=== PATIENT | female | born 1960 | race Caucasian/White ===

== ENCOUNTER 2018-09-02 14:54 | Inpatient (IN) | payer BC ==
[~2018-09-02] VITALS: Ht 157.5 cm; Wt 60.1 kg
[2018-09-02] MEDS ORDERED: ONDANSETRON 4MG/2ML VIAL (J2405) IV ONE (15:15)
[2018-09-02] MEDS ORDERED: PANTOPRAZOLE 40MG INJ (PROTONIX) (C9113) IV ONE (15:15)
[2018-09-02] MEDS ORDERED: NS 1,000 ML IV ONE ×2 (15:15→16:15)
[2018-09-02 15:21] LABS: BASO # 0.1 10^3/uL (0.0-0.2); BASO % 0.7 % (0.0-1.0); EOS # 0.2 10^3/uL (0.0-0.50); EOS % 1.5 % (0.0-3.0); HEMOGLOBIN 11.1 g/dl (12.0-15.5); LYMPH # 3.1 10^3/uL (1.5-4.5); LYMPH % 25.6 % (24.0-44.0); MEAN CORPUSCULAR HEMOGLOBIN 29.4 pg (27.0-33.0); MEAN CORPUSCULAR HGB CONC 31.7 g/dl (32.0-36.5); MEAN CORPUSCULAR VOLUME 92.6 fl (80.0-96.0); MONO % 8.1 % (0.0-5.0); NEUTROPHILS # 7.7 10^3/uL (1.8-7.7); NEUTROPHILS % 63.7 % (36.0-66.0); PLATELET COUNT, AUTOMATED 364 10^3/uL (150-450); RED BLOOD COUNT 3.78 10^6/uL (4.00-5.40)
[2018-09-02 15:31] LABS: INR 1.05; PROTHROMBIN TIME 13.8 SECONDS (12.1-14.4)
[2018-09-02 15:32] LABS: PARTIAL THROMBOPLASTIN TIME 22.6 SECONDS (25.4-37.6)
[2018-09-02 15:41] LABS: ALT/SGPT 17 U/L (12-78); BILIRUBIN,DIRECT 0.1 MG/DL (0.0-0.2); BILIRUBIN,TOTAL 0.5 MG/DL (0.2-1.0); BLOOD UREA NITROGEN 38 MG/DL (7-18); CALCIUM LEVEL 9.4 MG/DL (8.5-10.1); CARBON DIOXIDE LEVEL 26 MEQ/L (21-32); CHLORIDE LEVEL 109 MEQ/L (98-107); CK-MB VALUE MASS < 1.0 NG/ML (<3.6); CPK CREATINE PHOSPHOKINASE 68 U/L (26-192); CREATININE FOR GFR 0.87 MG/DL (0.55-1.30); GLOMERULAR FILTRATION RATE > 60.0 (>51); GLUCOSE, FASTING 162 MG/DL (70-100); LIPASE 188 U/L (73-393); MB/CK RELATIVE INDEX 1.47 (< OR =4); POTASSIUM SERUM 3.8 MEQ/L (3.5-5.1); SODIUM LEVEL 143 MEQ/L (136-145); TOTAL PROTEIN 6.5 GM/DL (6.4-8.2); TROPONIN I < 0.02 NG/ML (< 0.10)
[2018-09-02] MEDS ORDERED: LORA0.5T11 PO (15:50)
[2018-09-02] MEDS ORDERED: LAMI300T PO (15:52)
[2018-09-02] MEDS ORDERED: POTA10808 PO (15:56)
[2018-09-02] MEDS ORDERED: GABA-1171 PO (15:56)
[2018-09-02] MEDS ORDERED: [UNRECOGNIZED DRUG - CODE] PO (15:56)
[2018-09-02] MEDS ORDERED: FLUO40CA PO (15:56)
[2018-09-02] MEDS ORDERED: VASC1CAP2 PO (15:56)
[2018-09-02] MEDS ORDERED: ISOVUE-370 76% 100ML VIAL (Q9967) As Ordered ONE (16:46)
--- NOTE | 2018-09-02 17:16 | REPVR ---
EXAM: CT Abdomen and Pelvis With Contrast EXAM DATE/TIME: 09/02/2018 4:57 PM CLINICAL HISTORY: 58 years old, female; Signs and symptoms; Vomiting TECHNIQUE: Axial computed tomography images of the abdomen and pelvis with intravenous contrast. All CT scans at this facility use at least one of these dose optimization techniques: automated exposure control; mA and/or kV adjustment per patient size (includes targeted exams where dose is matched to clinical indication); or iterative reconstruction. Coronal and sagittal reformatted images were created and reviewed. CONTRAST: 100 ml of ISOVUE 370 administered intravenously. COMPARISON: CT ABD PELVIS W/O CONTRAST 09/08/2014 9:09 AM FINDINGS: Lower thorax: Ground glass opacity left lung base just above the left hemidiaphragm likely represents atelectasis.. ABDOMEN: Liver: Normal. No mass. Gallbladder and bile ducts: Normal. No calcified stones. No ductal dilation. Pancreas: Normal. No ductal dilation. Spleen: Normal. No splenomegaly. Adrenals: Normal. No mass. Kidneys and ureters: Punctate nonobstructive calculi both kidneys. Stomach and bowel: Mild diverticulosis is present in the distal colon. No diverticulitis. There is increased feces throughout the colon consistent with constipation. Appendix: No evidence of appendicitis. PELVIS: Bladder: Unremarkable as visualized. Reproductive: There has been a hysterectomy. ABDOMEN and PELVIS: Intraperitoneal space: Normal. No free air. No significant fluid collection. Bones/joints: The spine demonstrates mild degenerative changes. Moderate central spinal stenosis at L3-4 and L4-5. Soft tissues: Unremarkable. Vasculature: The aorta demonstrates mild atherosclerotic calcification. Lymph nodes: Normal. No enlarged lymph nodes. IMPRESSION: 1. There has been a hysterectomy. 2. Mild diverticulosis is present in the distal colon. No diverticulitis. 3. There is increased feces throughout the colon consistent with constipation. Electronically signed by: Aldo Pierson On 09/02/2018 17:16:32 PM
[2018-09-02 19:37] LABS: CPK CREATINE PHOSPHOKINASE 54 U/L (26-192); MB/CK RELATIVE INDEX 2.04 (< OR =4); TROPONIN I < 0.02 NG/ML (< 0.10)
--- NOTE | 2018-09-02 19:37 | ECGEPIP ---
Stationary ECG Study [facility] - ED Test Date: 2018-09-02 Pat Name: JUN CANTRELL Department: Room: - Gender: F Buccaro: ABDI : 1960 Requested By: ANABELLA El Order Number: [id number] Reading MD: Karely Roper Measurements Intervals [place] Rate: 89 P: 30 ME: 148 QRS: -19 QRSD: 91 T: 85 QT: 396 QTc: 483 Interpretive Statements SINUS RHYTHM ST DEVIATION AND MODERATE T-WAVE ABNORMALITY, CONSIDER ANTEROLATERAL ISCHEMIA ST DEVIATION AND MODERATE T-WAVE ABNORMALITY, CONSIDER INFERIOR ISCHEMIA PROLONGED QTC CLINICAL CORRELATION ADVISED Electronically Signed On 09-02-2018 19:37:05 EST by Karely Roper
[2018-09-02] MEDS ORDERED: FLUTISP NARES (19:41)
[2018-09-02] MEDS ORDERED: METF500T13 PO (19:41)
[2018-09-02] MEDS ORDERED: VITA1CAP25 PO (19:41)
[2018-09-02] MEDS ORDERED: CETI10TA PO (19:41)
--- NOTE | 2018-09-02 19:48 | ECGEPIP ---
Stationary ECG Study [facility] - ED Test Date: 2018-09-02 Pat Name: JUN CANTRELL Department: Room: - Gender: F Account Services Representative: paulo : 1960 Requested By: ANABELLA El Order Number: [id number] Reading MD: Karely Roper Measurements Intervals [place] Rate: 76 P: 24 W[place]: 156 QRS: -18 QRSD: 88 T: -73 QT: 425 QTc: 479 Interpretive Statements SINUS RHYTHM ST DEVIATION AND MODERATE T-WAVE ABNORMALITY, CONSIDER ANTEROLATERAL AND INFERIOR ISCHEMIA CW 09/02/18 RATE DECREASED [facility] Electronically Signed On 09-02-2018 19:48:48 EST by Karely Roper
[2018-09-02] MEDS ORDERED: BISACODYL 10 MG SUPP PR PRN (20:15)
[2018-09-02] MEDS ORDERED: LORazepam 0.5 MG TAB PO PRN (20:45)
--- NOTE | 2018-09-02 20:56 | HPEPDOC ---
[facility] Medical History & Physical Date of Admission Sep 02, 2018 Other Provider Admitting/dictating: Tika Morfin M.D. Attending Physician: VIELKA ROMAN MD History and Physical CHIEF COMPLAINT: "coffee ground" vomit x1 day HISTORY OF PRESENT ILLNESS: Patient is a 58-year-old female with history of GERD and depression. Patient comes from [place] to visit her parents here in [place] currently father diagnosed with Alzheimer's reside here in the [facility] home. According to her, she has been in her usual state of health until while at the [facility] visiting her father, she felt a little nauseous and "hot". She also reports some dizziness for which EMS was activated and while she was in the ambulance, she started having bouts of coffee ground vomit. She says over 10 times. However, she denies any associated abdominal pains. No abdominal discomfort. She denies any fever or chills. No palpitations, no chest pains. She never felt short of breath. No history of cough. He also denies any change in her bowel or urinary habits. She was evaluated in the emergency room and given pantoprazole and anti-emetics. Her abdominopelvic CT scan was significant for diverticulosis without diverticulitis and possible increased fecal matter consistent with constipation. GI informed, and patient likely to be scoped in the morning tomorrow. PAST MEDICAL HISTORY: Per HPI PAST SURGICAL HISTORY: 1. Hysterectomy without oophorectomy. 2. 2 sections in the past. 3. Neck surgery. 4. Exploratory laparotomy for endometriosis. SOCIAL HISTORY: Indulges occasionally in alcohol. Last use was last week. No cigarette smoking. No illicit drug use. She lives with her in [place]. She has parents living in [facility] and father in [facility] at the moment with Alzheimer. FAMILY HISTORY: Father: Alive, diagnosed with Alzheimer's Mother: Alive and well Children: 2 children, a male and female alive and well No histories of cancer in the family. ALLERGIES: Please see below. REVIEW OF SYSTEMS: She refers bouts of coffee ground vomit. She says over 10 times. However, she denies any associated abdominal pains. No abdominal discomfort. She denies any fever or chills. No palpitations, no chest pains. She never felt short of breath. No history of cough. He also denies any change in her bowel or urinary habits. Other systems reviewed, negative. 12 point review of system was done. HOME MEDICATIONS: Please see below. PHYSICAL EXAMINATION: VITAL SIGNS: Temperature 98, pulse 83, respiratory rate 18, blood pressure 126/62, pulse oximetry 99% on room air. GENERAL APPEARANCE: Middle aged woman, lying calmly in bed, not in any apparent distress. She is not pale, anicteric and afebrile HEENT: Atraumatic. Neck: Supple. LUNGS: Clear to auscultation bilaterally. CARDIOVASCULAR: S1 and 2 heard, no murmurs, rubs or gallops. ABDOMEN: Obese, soft, not tender, not distended. Bowel sounds normoactive. MUSCULOSKELETAL: Apparently within normal limits. EXTREMITIES: No pedal edema, 2+ bilateral pedal pulses noted. NEUROLOGICAL: Awake, alert, oriented 3. PSYCHIATRIC: Normal affect LABORATORY DATA: See below. IMAGING: CT abdomen and pelvis: There has been hysterectomy. Mild diverticulosis in distal: Increased feces consistent with constipation. MICROBIOLOGY: Please see below. ASSESSMENT: 58-year-old woman with GERD and depression. Comes in with coffee- ground vomiting, no abdominal pains. Physical exam unremarkable. CT consistent with diverticulosis and constipation. DIAGNOSES: 1. Upper GI bleed. 2. Constipation . PLAN: 1. I will admit patient to the PCU under care of Dr. Roman. 2. Hematocrit/hemoglobin every 6 hours, IV normal saline to run at 100 mils per hour, nothing by mouth, GI consult placed. Dr. Esteban was seen in the morning. Likely patient will be scoped, IV pantoprazole 40 mg every 12, follow CBC in the a.m. 3. Dulcolax per rectum when necessary constipation. 4. DVT prophylaxis, TEDs. 5. Post GI procedure tomorrow. Please patient may resume all by mouth medications. 7. Further management will be per patient's clinical course. Vital Signs Vital Signs Date Time Temp Pulse Resp B/P (MAP) Pulse Ox O2 Delivery O2 Flow Rate FiO2 09/02/18 18:09 83 18 126/62 (83) 99 09/02/18 15:39 Room Air 09/02/18 15:12 96.5 Laboratory Data Labs 24H Laboratory Tests 2 09/02/18 15:04: Immature Granulocyte % (Auto) 0.4, White Blood Count 12.0H, Red Blood Count 3.78L, Hemoglobin 11.1L, Hematocrit 35.0L, Mean Corpuscular Volume 92.6, Mean Corpuscular Hemoglobin 29.4, Mean Corpuscular Hemoglobin Concent 31.7L, Red Cell Distribution Width 13.2, Platelet Count 364, Neutrophils (%) (Auto) 63.7, Lymphocytes (%) (Auto) 25.6, Monocytes (%) (Auto) 8.1H, Eosinophils (%) (Auto) 1.5, Basophils (%) (Auto) 0.7, Neutrophils # (Auto) 7.7, Lymphocytes # (Auto) 3.1, Monocytes # (Auto) 1.0H, Eosinophils # (Auto) 0.2, Basophils # (Auto) 0.1, Nucleated Red Blood Cells % (auto) 0.0, Prothrombin Time 13.8, Prothromb Time International Ratio 1.05, Activated Partial Thromboplast Time 22.6L, Anion Gap 8, Glomerular Filtration Rate > 60.0, Lactic Acid Level 4.0*H, Calcium Level 9.4, Aspartate Amino Transf (AST/SGOT) 9, Alanine Aminotransferase (ALT/SGPT) 17, Alkaline Phosphatase 66, Total Bilirubin 0.5, Direct Bilirubin 0.1, Total Creatine Kinase 68, Creatine Kinase MB < 1.0, Creatine Kinase MB Relative Index 1.47, Troponin I < 0.02, Total Protein 6.5, Albumin 4.0, Albumin/Globulin Ratio 1.60, Lipase 188 09/02/18 19:00: Total Creatine Kinase 54, Creatine Kinase MB 1.0, Creatine Kinase MB Relative Index 2.04, Troponin I < 0.02, Lactic Acid Followup at 4 Hours 1.3 CBC/BMP Laboratory Tests 09/02/18 15:04 Red Blood Count 3.78 L, Mean Corpuscular Volume 92.6, Mean Corpuscular Hemoglobin 29.4, Mean Corpuscular Hemoglobin Concent 31.7 L, Red Cell Distribution Width 13.2, Neutrophils (%) (Auto) 63.7, Lymphocytes (%) (Auto) 25.6, Monocytes (%) (Auto) 8.1 H, Eosinophils (%) (Auto) 1.5, Basophils (%) (Auto) 0.7, Neutrophils # (Auto) 7.7, Lymphocytes # (Auto) 3.1, Monocytes # (Auto) 1.0 H, Eosinophils # (Auto) 0.2, Basophils # (Auto) 0.1 Home Medications Scheduled (Lamictal Xr) 300 Mg Tab, 300 MG PO DAILY (Ranitidine Hydrochloride) 150 Mg Cap, 1 CAP PO BID Cetirizine HCl (Cetirizine HCl) 10 Mg Tab, 10 MG PO DAILY Cholecalciferol (Vitamin D3) 50,000 Unit Cap, 50,000 UNIT PO Q2WK TAKES ON FRIDAYS Epa Ethyl [place] (Vascepa) 1 Gm Cap, 1 GM PO QID Fluoxetine Hcl (Fluoxetine HCl) 40 Mg Cap, 80 MG PO DAILY Fluticasone Propionate (Fluticasone Propionate) 50 Mcg/Act Spr, 2 SPRAY NARES DAILY Gabapentin (Gabapentin) 100 Mg Cap, 100 MG PO QHS PRESCRIBED FOR 2 CAPSULES BID, PATIENT TAKES ONE CAPSULE DAILY AT BEDTIME Lorazepam (Lorazepam) 0.5 Mg Tab, 0.5 MG PO TID PATIENT TAKES 1 TABLET DAILY IN THE MORNING Metformin Hydrochloride (Metformin HCl) 500 Mg Tab, 500 MG PO DAILY TAKE WITH DINNER MEAL FOR 2 WEEKS, THEN INCREASE TO 2 TABLETS WITH DINNER MEAL. NEW RX, HAS NOT STARTED Potassium Citrate (Potassium Citrate 10MEQ (Urocit-K)) 1,080 Mg Tab, 10 MEQ PO BID Allergies Coded Allergies: Sodium Hypochlorite (Verified Allergy, Intermediate, [facility]OR[facility] - RASH, 09/02/18) TIKA MORFIN MD Sep 02, 2018 20:04
[2018-09-02] MEDS: PANTOPRAZOLE 40MG INJ (PROTONIX) (C9113) IV SCH (22:21)
[2018-09-02] MEDS: NS 1,000 ML IV SCH (22:21)
[2018-09-02 23:08] LABS: HEMATOCRIT 26.2 % (36.0-47.0)
[2018-09-02 23:14] LABS: HEMOGLOBIN 8.5 g/dl (12.0-15.5)
[2018-09-03 03:13] LABS: HEMATOCRIT 25.5 % (36.0-47.0); HEMOGLOBIN 8.4 g/dl (12.0-15.5)
[2018-09-03 07:01] LABS: BASO # 0.1 10^3/uL (0.0-0.2); BASO % 0.7 % (0.0-1.0); EOS # 0.2 10^3/uL (0.0-0.50); EOS % 3.1 % (0.0-3.0); HEMOGLOBIN 8.4 g/dl (12.0-15.5); LYMPH # 2.2 10^3/uL (1.5-4.5); LYMPH % 30.3 % (24.0-44.0); MEAN CORPUSCULAR HEMOGLOBIN 29.5 pg (27.0-33.0); MEAN CORPUSCULAR HGB CONC 32.3 g/dl (32.0-36.5); MEAN CORPUSCULAR VOLUME 91.2 fl (80.0-96.0); MONO # 0.6 10^3/uL (0.0-0.8); MONO % 8.7 % (0.0-5.0); NEUTROPHILS # 4.1 10^3/uL (1.8-7.7); NEUTROPHILS % 56.8 % (36.0-66.0); RED BLOOD COUNT 2.85 10^6/uL (4.00-5.40); WHITE BLOOD COUNT 7.1 10^3/uL (4.0-10.0)
[2018-09-03 07:12] LABS: PLATELET COUNT, AUTOMATED 264 10^3/uL (150-450)
[2018-09-03 07:27] LABS: BLOOD UREA NITROGEN 18 MG/DL (7-18); CALCIUM LEVEL 8.3 MG/DL (8.5-10.1); CARBON DIOXIDE LEVEL 24 MEQ/L (21-32); CHLORIDE LEVEL 114 MEQ/L (98-107); CREATININE FOR GFR 0.57 MG/DL (0.55-1.30); GLOMERULAR FILTRATION RATE > 60.0 (>51); GLUCOSE, FASTING 96 MG/DL (70-100); POTASSIUM SERUM 3.5 MEQ/L (3.5-5.1); SODIUM LEVEL 144 MEQ/L (136-145)
[2018-09-03 07:39] LABS: ETHYL ALCOHOL (ETHANOL) < 0.003 % (0.000-0.010)
[2018-09-03] MEDS ORDERED: ACETAMINOPHEN TAB 650MG DOSE (2X325MG) PO ONE (08:00)
[2018-09-03] MEDS: CETIRIZINE (ZyrTEC) 10 MG TAB PO SCH (09:00)
[2018-09-03] MEDS: lamoTRIgine 100MG TAB PO SCH (09:00)
[2018-09-03] MEDS: FLUTICASONE PROP 0.05% NASAL SPRAY 16 GM (FLONASE) NARES SCH (09:00)
[2018-09-03] MEDS: FLUoxetine 20 MG CAP PO SCH (09:00)
[2018-09-03] MEDS: NS 1,000 ML IV SCH (09:50)
[2018-09-03] MEDS: PANTOPRAZOLE 40MG INJ (PROTONIX) (C9113) IV SCH ×2 (09:50→19:38)
[2018-09-03] MEDS: ONDANSETRON 4MG/2ML VIAL (J2405) IV PRN (10:58)
[2018-09-03] MEDS ORDERED: LIDOCAINE 2% INJ 100 MG/5 ML SDV (FOR ANES.) As Ordered ONE (11:13)
[2018-09-03] MEDS ORDERED: PROPOFOL 200 MG/20 ML VIAL As Ordered ONE (11:13)
[2018-09-03] MEDS ORDERED: ONDANSETRON 4MG/2ML VIAL (J2405) IV PRN (12:30)
[2018-09-03] MEDS ORDERED: LR 1,000 ML IV SCH (12:30)
--- NOTE | 2018-09-03 12:33 | ROOR ---
Patient Name: Anna Hoover Procedure Date: 09/03/2018 11:38 AM Date of : 1960 Age: 58 Gender: Female Note Status: Finalized Procedure: Upper Endoscopy + Biopsies Indications: Iron deficiency anemia, Coffee-ground emesis Providers: De Esteban MD Referring MD: 1. No Referring Physician 1. No Referring Physician, Admin. Requesting Provider: Medicines: Monitored Anesthesia Care Complications: No immediate complications. Procedure: Pre-Anesthesia Assessment: - The heart rate, respiratory rate, oxygen saturations, blood pressure, adequacy of pulmonary ventilation, and response to care were monitored throughout the procedure. The Endoscope was introduced through the mouth, and advanced to the second part of duodenum. The upper GI endoscopy was accomplished without difficulty. The patient tolerated the procedure well. Findings: The Z-line was regular and was found 40 cm from the incisors. Diffuse mild inflammation characterized by congestion (edema), erosions, erythema and aphthous ulcerations was found in the gastric antrum. Biopsies were taken with a cold forceps for Helicobacter pylori testing. The duodenal bulb was normal. Localized mild mucosal changes characterized by inflammation were found in the first portion of the duodenum. The exam was otherwise without abnormality. Impression: - Z-line regular, 40 cm from the incisors. - Mucosal changes suspicious for gastritis. Biopsied. - Normal duodenal bulb. - Mucosal changes in the duodenum. - The examination was otherwise normal. Recommendation: - [facility]. - Continue present medications. - Return to referring physician. - Use Prilosec (omeprazole) 40 mg PO daily. - The findings and recommendations were discussed with the patient's family. Attending Participation: I personally performed the entire procedure. De Esteban MD De Esteban MD 09/03/2018 12:33:10 PM This report has been signed electronically. Number of Addenda: 0 Note Initiated On: 09/03/2018 11:38 AM Estimated Blood Loss: Estimated blood loss: none.
[2018-09-03 13:00] VITALS: BP 132/69
[2018-09-03] MEDS: ACETAMINOPHEN TAB 650MG DOSE (2X325MG) PO PRN ×2 (14:38→23:51)
[2018-09-03] MEDS ORDERED: SLF 3 ML SYR IV PRN (15:00)
[2018-09-03 16:00] VITALS: BP 129/71
[2018-09-03] MEDS: SLF 3 ML SYR IV SCH (19:38)
[2018-09-03 20:00] VITALS: BP 138/69
[2018-09-03 20:17] LABS: HEMATOCRIT 24.7 % (36.0-47.0)
[2018-09-03] MEDS ORDERED: GABAPENTIN 100 MG CAP PO SCH (21:00)
[2018-09-04] VITALS: BP 113/62
[2018-09-04] MEDS: ONDANSETRON 4MG/2ML VIAL (J2405) IV PRN (03:37)
[2018-09-04 04:00] VITALS: BP 116/66
[2018-09-04] MEDS: SLF 3 ML SYR IV SCH (05:35)
[2018-09-04 05:45] LABS: HEMOGLOBIN 8.2 g/dl (12.0-15.5); MEAN CORPUSCULAR HGB CONC 31.5 g/dl (32.0-36.5); MEAN CORPUSCULAR VOLUME 91.9 fl (80.0-96.0); PLATELET COUNT, AUTOMATED 272 10^3/uL (150-450); RED BLOOD COUNT 2.83 10^6/uL (4.00-5.40); WHITE BLOOD COUNT 6.1 10^3/uL (4.0-10.0)
[2018-09-04 06:06] LABS: BLOOD UREA NITROGEN 6 MG/DL (7-18); CALCIUM LEVEL 8.6 MG/DL (8.5-10.1); CARBON DIOXIDE LEVEL 26 MEQ/L (21-32); CHLORIDE LEVEL 110 MEQ/L (98-107); CREATININE FOR GFR 0.57 MG/DL (0.55-1.30); GLOMERULAR FILTRATION RATE > 60.0 (>51); GLUCOSE, FASTING 99 MG/DL (70-100); POTASSIUM SERUM 3.7 MEQ/L (3.5-5.1); SODIUM LEVEL 142 MEQ/L (136-145)
[2018-09-04 07:49] VITALS: BP 126/74
[2018-09-04] MEDS ORDERED: MOM 30ML SUSPENSION UDC PO ONE (08:15)
[2018-09-04] MEDS ORDERED: SENOKOT S TAB PO SCH (09:00)
[2018-09-04] MEDS: PANTOPRAZOLE 40MG INJ (PROTONIX) (C9113) IV SCH (09:07)
[2018-09-04] MEDS: lamoTRIgine 100MG TAB PO SCH (09:07)
[2018-09-04] MEDS: FLUTICASONE PROP 0.05% NASAL SPRAY 16 GM (FLONASE) NARES SCH (09:08)
[2018-09-04] MEDS: FLUoxetine 20 MG CAP PO SCH (09:08)
[2018-09-04] MEDS: CETIRIZINE (ZyrTEC) 10 MG TAB PO SCH (09:08)
[2018-09-04 10:45] LABS: AMORPHOUS SEDIMENT SMALL (NEGATIVE); APPEARANCE, URINE HAZY (CLEAR); BACTERIA, URINE AUTO 1+ (NEGATIVE); BILIRUBIN, URINE AUTO NEGATIVE (NEGATIVE); BLOOD, URINE BLOOD NEGATIVE (NEGATIVE); COLOR, URINE YELLOW (YELLOW); GLUCOSE, URINE (UA) AUTO NEGATIVE (NEGATIVE); KETONE, URINE AUTO TRACE mg/dL (NEGATIVE); LEUKOCYTE ESTERASE, URINE AUTO 3+ (NEGATIVE); MUCUS, URINE SMALL (NEGATIVE); NITRITE, URINE AUTO POSITIVE (NEGATIVE); PROTEIN, URINE AUTO NEGATIVE (NEGATIVE); RBC, URINE AUTO 11 /HPF (0-3); SPECIFIC GRAVITY URINE AUTO 1.005 (1.002-1.035); SQUAMOUS EPITHELIAL CELL UR AU 0 /HPF (0-6); UROBILINOGEN, URINE AUTO 0.2 mg/dL (0.0-2.0); WBC, URINE AUTO 148 /HPF (0-3)
[2018-09-04] MEDS ORDERED: NITROFURANTOIN (MACROBID) 100 MG CAP PO SCH (11:00)
[2018-09-04 12:00] VITALS: BP 116/56
[2018-09-04] MEDS ORDERED: MACR100C43 PO (12:24)
[2018-09-04] MEDS ORDERED: PRIL20TA2 PO (12:24)
--- NOTE | 2018-09-04 17:10 | IPN ---
DATE: 09/03/2018 SUBJECTIVE: The patient tells me she is feeling better. She is not having any more vomiting. She tells me that she still feels weak, but otherwise she has no specific complaints at this time. OBJECTIVE: VITAL SIGNS: Temperature 97.4, pulse 85, respiratory rate 18, blood pressure 127/62, oxygen saturation 100% on room air. GENERAL: She is a pleasant, female sitting up in bed. She does not appear to be in any acute distress. She is accompanied by her . HEENT: Cranial nerves XII-XII are grossly intact. She has moist mucous membranes. No elevation in her central venous pressure (CVP). CARDIOVASCULAR EXAM: S1, S2, regular. RESPIRATORY EXAM: Is actually quite clear. ABDOMINAL EXAM: Is quite benign even to deep palpation. EXTREMITIES: No clubbing, cyanosis, or edema. LABORATORY STUDIES: WBC 7.1, down from 12.0, hemoglobin 8.4, platelet count is 264. Chemistry panel: Sodium 143, potassium 3.5, chloride 114, bicarbonate 24, BUN 18, creatinine 0.5. Multiple sets of cardiac enzymes are negative. Lactic acid was initially elevated at 4.0, repeat was within normal limits at 1.3. An alcohol level was negative. INR was 1.0. IMAGING: The patient did have a CT scan of the abdomen and pelvis which revealed that she had previously had a hysterectomy, mild diverticulosis, increased feces throughout the colon consistent with constipation. ASSESSMENT AND PLAN: This is a 58-year-old female with acute blood loss anemia secondary to upper gastrointestinal (GI) bleed. 1. Acute blood loss anemia secondary to suspected upper gastrointestinal (GI) bleed. Dr. Esteban has been called. The patient does have an elevated BUN. Her hemoglobin did drop. She did have coffee-ground emesis. She is currently nothing by mouth. We have provided her with gentle fluids. She does tell me that she does take Anacin which could be a potential etiology for her bleeding. She is currently on Protonix twice a day and does appear to be clinically improving without any further vomiting. We will continue to monitor hemoglobin and hematocrit and see how she does with her procedure this morning. I did speak with Dr. Esteban this morning who has assured me he will be seeing the patient. 2. Anxiety. Continue with Ativan as needed. 3. Seasonal allergies. Will resume her cetirizine when able. 4. Mood disorder. Will continue with her fluoxetine when able. Will also resume her Lamictal when able.
--- NOTE | 2018-09-04 17:28 | CR ---
DATE OF CONSULTATION: 09/03/2018 This is a 58-year-old white female who was admitted to [facility] on 09/02/2018 for apparent multiple bouts of hematemesis. The patient has a known history of reflux and depression. She has no complaints of abdominal pain. No fevers, night sweats or shaking chills. The patient began not feeling well on the date of admission and had multiple bouts of vomiting, up to 10-16 times. The patient had an abdominal CT in the emergency room, which was not significant to the above problem. No previous history of bleeding in the past. PAST MEDICAL HISTORY: As above. PAST SURGICAL HISTORY: 1. Hysterectomy. 2. Status post two sections (C-sections). 3. Previous neck operation. 4. Exploratory laparotomy for endometriosis. SOCIAL HISTORY: Cigarettes: None. Alcohol: Occasionally. FAMILY HISTORY: Noncontributory to the above problems. ALLERGIES: No known declared allergies. REVIEW OF SYSTEMS: Noncontributory. PHYSICAL EXAMINATION: General: Well-developed, well-nourished white female in no obvious acute distress. Appears stated age. Chest was clear to auscultation. Cardiovascular exam showed a regular rhythm. No murmurs or gallops. Normal physiological split, S1, S2. Abdomen: Soft, nontender. No masses, guarding, rebound, hepatosplenomegaly. Bowel sounds positive. CT IMAGING: As above. ANALYSIS: Coffee-ground emesis of unknown etiology. The patient apparently takes Anacin, which has aspirin in it, for aches and pains and chronic back issues. According to her , the patient takes it very frequently. Probable cause of the coffee-ground emesis is nonsteroidal-induced gastropathy. Will plan to perform upper endoscopy to rule out peptic ulcer disease. The patient's laboratory studies showed today, 09/03/2018, a hemoglobin of 8.4 and 26.0. No further episodes of vomiting or black tarry stools.
--- NOTE | 2018-09-05 16:42 | DSES ---
DATE OF ADMISSION: 09/02/2018 DATE OF DISCHARGE: 09/04/2018 DISCHARGE DIAGNOSIS: Acute blood loss anemia secondary to upper gastrointestinal (GI) bleed. SECONDARY DIAGNOSES: Gastritis, urinary tract infection, lactic acidosis, constipation. HOSPITAL COURSE: The patient is a 58-year-old female who was visiting her father who lives in the area, but she is from [place] where she began to have numerous episodes of coffee-ground emesis. She tells she had eaten a piece of leftover pizza from the night before that had been refrigerated, but other than that no change in her diet. Nobody else had been sick, no sick contact that she had been around. Her vomiting had resolved by when she presented to the emergency room, however she did have a drop in her hemoglobin, when she presented it was 11.1 and dropped to 8.5 where was roughly around where it settled. She did not receive any blood transfusions during her stay. She was seen in consultation by Dr. Esteban of gastroenterology who did an upper endoscopy and did discover some findings concerning for gastritis. He recommended that she be on Prilosec daily. Post-procedurally she did complain of constipation and was provided with a bowel regimen which did help. She also did have some dysuria. A urinalysis was checked and was positive. Based on her previous culture data she was started on Macrobid for pansensitive Escherichia (E) coli. She was able to tolerate a regular diet. At this time, the patient tells me that she feels back to normal and has no complaints whatsoever. OBJECTIVE: VITAL SIGNS: Temperature 98.1, pulse 83, respiratory rate 19, blood pressure 126/74, oxygen saturation 100% on room air. GENERAL: She is a pleasant, female sitting up in bed. She does not appear to be in any acute distress. HEENT: Cranial nerves II-XII are grossly intact. She has moist mucous membranes. (cut off). CARDIOVASCULAR: S1, S2, regular. RESPIRATORY: Fairly clear. ABDOMINAL EXAM: Bowel sounds are present, the abdomen is soft and nontender. EXTREMITIES: No clubbing, cyanosis, or edema. LABORATORY STUDIES: WBC 6.1, hemoglobin 8.2, platelet count 272. Chemistry panel: Sodium 143, potassium 3.8, chloride 109, bicarbonate 26, BUN 38, creatinine 0.8. Liver function tests were within normal limits. Multiple sets of cardiac enzymes were negative. Lactic acidosis of 4.0 did resolve with fluid resuscitation. An ethyl alcohol level was negative. She did have a CT scan of the abdomen and pelvis during her stay which revealed increased feces throughout the colon. ASSESSMENT AND PLAN: This is a 58-year-old female with acute blood loss anemia secondary to upper gastrointestinal (GI) bleed related to gastritis. 1. Gastritis, possibly secondary to Anacin, Dr. Esteban recommended she discontinue this medication. She is tolerating a regular diet. He has recommended she be on Prilosec daily which she will be discharged home with. She is already on ranitidine. Her hemoglobin has stabilized. No evidence of any ongoing bleeding. Recommend that she followup with Dr. Esteban within 1 month, followup with primary care provider (PCP) within 7 days. Her activity and diet are as prior to admission. She is to return to the emergency room (ER) if symptoms worsen. 2. Urinary tract infection. She has been started on Macrobid 100 mg by mouth twice a day for 5 days. She received her first dose while at the hospital. She can followup urine culture with her primary care provider. 3. Lactid acidosis, resolved. 4. Mood disorder. She is continued on fluoxetine and Lamictal and lorazepam. 5. Diabetes. Finger sticks were controlled. She was continued on metformin. 6. Seasonal allergies. She was continued on cetirizine and Flonase. 7. Neuropathy. She was continued on gabapentin. DISPOSITION: The patient is at her functional baseline, her clinical syndrome has resolved. MEDICATIONS AT THE TIME OF DISCHARGE: - nitrofurantoin 100 mg twice a day for 5 days - omeprazole 20 mg daily - cetirizine 10 mg daily - vitamin D 50,000 units every 2 weeks - Vascepa 1 gram by mouth four times a day as per the patient - fluoxetine 80 mg daily - fluticasone 50 mcg two sprays both nares daily - gabapentin 100 mg nightly - Lamictal extended release 200 mg daily - lorazepam 0.5 mg three times a day - metformin 500 mg twice a day - potassium citrate 10 mEq twice a day - ranitidine 150 mg twice a day Greater than 30 minutes spent organizing disposition.
== END 2018-09-04 13:50 | disposition home or self-care (01) | DRG 241 ==
LOC: M ED 14:54 → EDBD 14:54 → M ED INP 20:05 → M PCU 09-03 12:45
PROVIDERS: ADMIT Hospitalist; ATTEND Internal Medicine
PROC: 0DB68ZX Excision of Stomach, Via Natural or Artificial Opening Endoscopic, Diagnostic (ICD-10-PCS; principal; 2018-09-03 12:00)
DX: K29.71 Gastritis, unspecified, with bleeding (principal); E87.2 Acidosis; E11.40 Type 2 diabetes mellitus with diabetic neuropathy, unspecified; D62 Acute posthemorrhagic anemia; N39.0 Urinary tract infection, site not specified; K59.00 Constipation, unspecified; F39 Unspecified mood [affective] disorder; Z79.899 Other long term (current) drug therapy; F41.9 Anxiety disorder, unspecified

== ENCOUNTER 2023-03-18 23:41 | Emergency (ER) | payer BC ==
[~2023-03-18] VITALS: Ht 157.5 cm; Wt 56.8 kg
[~2023-03-18 23:41] MED LIST: CETI10TA PO; FLUO40CA PO; FLUT50SP17 NARES; GABA-1171 PO; LAMI300T PO; LORA0.5T5 PO; MACR100C43 PO; METF500T13 PO; POTA10808 PO; PRIL20TA2 PO; VASC1CAP2 PO; VITA1CAP25 PO; [UNRECOGNIZED DRUG - CODE] PO
[2023-03-19 00:54] LABS: BASO # 0.1 10^3/uL (0.0-0.2); BASO % 0.6 % (0.0-1.0); EOS # 0.2 10^3/uL (0.0-0.5); EOS % 1.8 % (0.0-3.0); HEMATOCRIT 39.1 % (36.0-47.0); HEMOGLOBIN 12.6 g/dl (12.0-15.5); LYMPH # 2.3 10^3/uL (1.5-5.0); LYMPH % 19.4 % (24.0-44.0); MEAN CORPUSCULAR HGB CONC 32.2 g/dl (32.0-36.5); MEAN CORPUSCULAR VOLUME 89.9 fl (80.0-96.0); MONO # 1.5 10^3/uL (0.0-0.8); MONO % 12.3 % (2.0-8.0); NEUTROPHILS # 7.9 10^3/uL (1.5-8.5); NEUTROPHILS % 65.6 % (36.0-66.0); PLATELET COUNT, AUTOMATED 286 10^3/uL (150-450); RED BLOOD COUNT 4.35 10^6/uL (4.00-5.40); WHITE BLOOD COUNT 12.1 10^3/uL (4.0-10.0)
[2023-03-19 01:16] LABS: LIPASE 43 U/L (12-53)
[2023-03-19 01:18] LABS: ALBUMIN 3.6 G/DL (3.2-5.2); ALKALINE PHOSPHATASE 117 U/L (46-116); ALT/SGPT 21 U/L (7.0-40); AST/SGOT 24 U/L (<34); BILIRUBIN,DIRECT 0.2 MG/DL (<0.4); BILIRUBIN,TOTAL 0.5 MG/DL (0.3-1.2); BLOOD UREA NITROGEN 17 MG/DL (9-23); CALCIUM LEVEL 10.4 MG/DL (8.3-10.6); CARBON DIOXIDE LEVEL 25 MMOL/L (20-31); CHLORIDE LEVEL 109 MMOL/L (98-107); CREATININE FOR GFR 0.62 MG/DL (0.55-1.30); GLOMERULAR FILTRATION RATE > 60.0 (>45); GLUCOSE, FASTING 123 MG/DL (74-106); POTASSIUM SERUM 4.1 MMOL/L (3.5-5.1); SODIUM LEVEL 144 MMOL/L (136-145); TOTAL PROTEIN 6.2 G/DL (5.7-8.2)
[2023-03-19] MEDS ORDERED: KETOROLAC 30 MG/ML 1ML VIAL IV ONE (06:20)
[2023-03-19] MEDS ORDERED: ISOVUE-370 76% 100ML VIAL As Ordered ONE (06:21)
[2023-03-19] MEDS ORDERED: LAMI1TAB8 PO (08:12)
[2023-03-19] MEDS ORDERED: FAMO40TA3 PO (08:12)
[2023-03-19] MEDS ORDERED: BRIN1TAB3 PO (08:12)
[2023-03-19] MEDS ORDERED: TRAZ-252 PO (08:12)
[2023-03-19] MEDS ORDERED: METR-265 PO ×2 (08:24→08:48)
[2023-03-19] MEDS ORDERED: BACT800T5 PO ×2 (08:24→08:48)
[2023-03-19 08:49] VITALS: BP 119/56; TEMP 96.9; O2SAT 96
== END 2023-03-19 08:52 | disposition home or self-care (01) ==
LOC: M ED 23:41
DX: K57.32 Diverticulitis of large intestine without perforation or abscess without bleeding (principal); E11.9 Type 2 diabetes mellitus without complications; Z87.442 Personal history of urinary calculi; Z87.19 Personal history of other diseases of the digestive system; Z79.899 Other long term (current) drug therapy; Z88.8 Allergy status to other drugs, medicaments and biological substances
CPT/HCPCS: 74177; 80048; 80076; 81001; 83690; 85025; 96374; 99284; J1885; Q9967

== ENCOUNTER → 2025-02-11 | Outpatient (REF) | payer MEDICARE ==
[~2025-02-11] MED LIST changes: +BACT800T5 PO; +BRIN1TAB3 PO; +FAMO40TA3 PO; -FLUT50SP17 NARES; +FLUTISP NARES; +LAMI1TAB8 PO; +METR-265 PO; -POTA10808 PO; +POTA10809 PO; +TRAZ-252 PO
== END ==
LOC: M LABWUC 14:17
PROVIDERS: ATTEND Nurse Practitioner Family
DX: R53.83 Other fatigue (principal)

== ENCOUNTER → 2025-02-11 | Outpatient (REF) | payer MEDICARE | LOC: M LAB REF 14:03 | PROVIDERS: ATTEND Nurse Practitioner Family | DX: R30.0 Dysuria (principal) ==